=== PATIENT | female | born 2000 | race Caucasian/White ===

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

== ENCOUNTER 2018-05-11 17:36 | Emergency (ER) | payer MEDICAID, OTHER ==
[2018-05-11] MEDS: HYDROCODONE/APAP (5/325) TAB PO (22:00)
[2018-05-11] MEDS: LIDOCAINE 1% (MDV) 20 ML INJ SC (22:15)
== END 2018-05-12 00:14 | disposition home or self-care (01) ==
LOC: FTE 05-12 00:14
DX: L60.0 Ingrowing nail (principal); L03.032 Cellulitis of left toe
CPT/HCPCS: 10060; 99283-25